=== PATIENT | female | born 1970 | race Caucasian/White ===

== ENCOUNTER → 2018-06-16 13:33 | Outpatient (CLI) | payer MEDICAID, SELFPAY ==
--- NOTE | 2018-06-16 14:54 | DI.REPORT_ITS ---
SYMPTOM/DIAGNOSIS: NECK PAIN M54.2, DIZZINESS R 42 CAROTID ULTRASOUND: There is minimal calcific plaque in the right common carotid bulb. The velocity measurements are within the normal range. The vertebral arteries show antegrade flow. IMPRESSION: No significant internal carotid artery stenosis.
== END ==
PROVIDERS: PCP Physician Assistant Medical; Visit Provider Physician Assistant Medical
DX: M54.2 Cervicalgia (principal); R42 Dizziness and giddiness
CPT/HCPCS: 93880

== ENCOUNTER 2018-09-10 17:04 | Outpatient (REF) | payer MEDICAID, SELFPAY ==
[2018-09-10 21:11] LABS: ALT 42 U/L (12-78); AST 24 U/L (15-37); Albumin 3.5 g/dL (3.4-5.0); Alkaline Phosphatase 139 U/L (46-116); Anion Gap 9.1 mmol/L (3-11); BUN 13 mg/dL (7-18); Bilirubin, Total 0.3 mg/dL (0.2-1.0); CO2 30.9 mmol/L (21.0-32.0); CREATININE 0.73 mg/dL (0.55-1.02); Calcium 9.5 mg/dL (8.5-10.1); Chloride 101 mmol/L (98-107); Cholesterol 187 mg/dL (50-200); Glucose 115 mg/dL (70-100); HDL Cholesterol 37 mg/dL (40-60); LDL CHOLESTEROL 112 mg/dL (<100); Potassium 4.1 mmol/L (3.5-5.1); Sodium 141 mmol/L (136-145); Total Protein 7.4 g/dL (6.4-8.2); Triglyceride 304 mg/dL (30-150)
== END 2018-09-10 17:24 ==
LOC: NCHCN 17:04
PROVIDERS: PCP Physician Assistant Medical; Visit Provider Physician Assistant Medical
DX: E78.5 Hyperlipidemia, unspecified (principal); E03.9 Hypothyroidism, unspecified
CPT/HCPCS: 80053; 80061; 83721; 83036; 84443

== ENCOUNTER 2018-10-16 01:17 | Outpatient (CLI) | payer MEDICAID, SELFPAY ==
--- NOTE | 2018-10-16 11:56 | DI.MRI_ITS ---
SYMPTOM/DIAGNOSIS: RT NECK PAIN, M54.2 C-SPINE MRI: The history is right neck pain. The study was carried out according to the usual protocol. The noncontrast enhanced examination includes T2 sagittal,l T1 sagittal, T1 sagittal FLAIR and T2 axial and T1 sagittal STIR and T2 sagittal 3-D pulses sequences. The cervical vertebra are intact. There is normal cervical lordosis. The disc spaces are well maintained. The dens is intact. There is no evidence of a marrow signal abnormality. No intrinsic or extrinsic abnormality involving the cervical cord is identified and there is no evidence of expansion or abnormal cord signal. Note is also incidentally made of no abnormality in the posterior fossa as demonstrated. At C4-C5, no abnormality is demonstrated. There is no evidence of spinal stenosis. At C5-6, a broad based disc protrusion causes mild canal narrowing and mild bilateral foraminal narrowing. At C6-7, left paracentral disc protrusion. There is vertebral spurring which causes mild to moderate canal narrowing and moderate left foraminal stenosis. At C7-T1 there is no evidence of significant central canal or foraminal narrowing. SUMMARY: No acute findings are demonstrated involving the cervical spine. There is mild to moderate degenerative disc disease at C5-C6. Please see the above discussion.
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
== END 2018-10-16 01:37 ==
PROVIDERS: PCP Physician Assistant Medical; Visit Provider Physician Assistant Medical
DX: M54.2 Cervicalgia (principal); M50.222 Other cervical disc displacement at C5-C6 level
CPT/HCPCS: 72141

== ENCOUNTER 2019-02-10 00:29 | Outpatient (CLI) | payer MEDICAID, SELFPAY ==
[2019-02-10] MEDS: Barium Sulfate 60% W/V 355 ML BTL PO ×2 (10:35→10:36)
[2019-02-10] MEDS: Barium Sulfate 700 MG TAB PO (10:36)
--- NOTE | 2019-02-10 10:36 | DI.RAD_ITS ---
SYMPTOM/DIAGNOSIS: GLOBUS SENSATION F45.8 BARIUM SWALLOW: Fluoroscopy Time: 1 min 6 sec A preliminary PA and lateral examination of the chest and a soft tissue neck are within normal limits. The patient swallowed Barium without difficulty. No abnormality involving oral hypopharynx is seen. The esophagus appears normal throughout. There is no evidence of a hiatus hernia. SUMMARY: Normal Barium swallow.
== END 2019-02-10 00:49 ==
PROVIDERS: PCP Physician Assistant Medical; Visit Provider Physician Assistant Medical
DX: F45.8 Other somatoform disorders (principal)
CPT/HCPCS: 74220

== ENCOUNTER 2019-06-16 12:56 | Outpatient (REF) | payer MEDICAID, SELFPAY ==
[2019-06-18 09:55] LABS: HIV-1/2 Ag & Ab Screen Negative (NEGAT)
[2019-06-18 10:48] LABS: Hepatitis C Ab w Rflx HCV PCR Negative (NEGAT)
[2019-06-18 15:02] LABS: Syphilis Serology (RPR) Negative (Negative)
[2019-06-18 15:35] LABS: Chlamydia Result Negative; GC Result Negative; Specimen Description URINE
== END 2019-06-16 13:16 ==
LOC: NCHCN 12:56
PROVIDERS: PCP Physician Assistant Medical; Visit Provider Physician Assistant Medical
DX: Z11.3 Encounter for screening for infections with a predominantly sexual mode of transmission (principal); Z70.8 Other sex counseling; Z11.4 Encounter for screening for human immunodeficiency virus [HIV]; Z11.59 Encounter for screening for other viral diseases
CPT/HCPCS: 86803; 87389; 87491; 87591; 86592

== ENCOUNTER 2019-08-05 12:52 | Outpatient (CLI) | payer MEDICAID, SELFPAY ==
--- NOTE | 2019-08-05 13:29 | DI.RAD_ITS ---
EXAM: XR CHEST 2V PA AND LATERAL INDICATION: COUGH, R05. COMPARISON: RF barium swallow from 02/10/2019 TECHNIQUE: 2D digital imaging was performed. FINDINGS: The lungs are well expanded and free of infiltrate. There is no pleural effusion. The heart is not en larged. Hilar structures, mediastinum and tracheal air column are intact. IMPRESSION: No evidence of acute cardiopulmonary disease.
[2019-08-05 14:33] LABS: Abs Immature Grans 0.02 k/cumm (0.0-0.09); Absolute Basophil Count 0.03 k/cumm (0.0-0.2); Absolute Eosinophil Count 0.15 k/cumm (0.0-0.7); Absolute Lymphocyte Count 1.48 k/cumm (1.2-3.4); Absolute Monocyte Count 0.93 k/cumm (0.11-0.7); Absolute Neutrophil Count 5.46 k/cumm (1.2-6.7); Basophils % 0.4; Eosinophils % 1.9; HCT 44.3 % (36.0-46.0); HGB 14.2 g/dL (12.0-15.5); Immature Grans % 0.2; Lymphocytes % 18.3; Mean Corp. HGB Concentration 32.1 g/dL (32.0-36.0); Mean Corpuscular Hemoglobin 28.7 pg (27.0-33.0); Mean Corpuscular Volume 89.7 fL (80-95); Mean Platelet Volume 10.6 fL (8.0-11.0); Monocytes % 11.5; Neutrophils % 67.7; Platelet Count 390 x1000/uL (130-400); RBC 4.94 m/cumm (4.00-5.20); RBC Distribution Width 13.7 % (11.7-14.6); White Blood Cell Count 8.07 k/cumm (4.4-10.8)
[2019-08-05 14:35] LABS: Anion Gap 9.8 mmol/L (3-11); BUN 9 mg/dL (7-18); CO2 27.2 mmol/L (21.0-32.0); CREATININE 0.74 mg/dL (0.55-1.02); Calcium 9.3 mg/dL (8.5-10.1); Chloride 106 mmol/L (98-107); Glucose 116 mg/dL (70-100); Potassium 4.4 mmol/L (3.5-5.1); Sodium 143 mmol/L (136-145)
== END 2019-08-05 13:12 ==
PROVIDERS: PCP Physician Assistant Medical; Visit Provider Physician Assistant Medical
DX: R05 Cough (principal)
CPT/HCPCS: 80048; 71046; 85025

== ENCOUNTER 2021-10-13 20:42 | Outpatient (REF) | payer BC, MEDICAID, SELFPAY ==
[2021-10-13 20:27] LABS: BUN 15 mg/dL (7-18); CREATININE 0.6 mg/dL (0.55-1.02); Calcium 9.5 mg/dL (8.5-10.1); Cholesterol 225 mg/dL (<200); Glucose 83 mg/dL (74-106); Triglyceride 212 mg/dL (<150)
[2021-10-13 20:28] LABS: ALT 60 U/L (14-59); AST 26 U/L (15-37); Albumin 3.9 g/dL (3.4-5.0); Alkaline Phosphatase 152 U/L (46-116); Anion Gap 5.3 mmol/L (3-11); Bilirubin, Total 0.5 mg/dL (0.2-1.0); CO2 33.7 mmol/L (21.0-32.0); Calculated LDL 136 mg/dL (<100); Chloride 102 mmol/L (98-107); HDL Cholesterol 47 mg/dL (40-60); Potassium 4.8 mmol/L (3.5-5.1); Sodium 141 mmol/L (136-145); TSH 3.91 uIU/mL (0.36-3.74); Total Protein 7.8 g/dL (6.4-8.2)
[2021-10-13 20:30] LABS: Hemoglobin A1C 5.9 % (<5.7)
[2021-10-16 08:49] LABS: HCT 44.5 % (36.0-46.0); HGB 13.9 g/dL (11.2-15.7); MCH 28.1 pg (27.0-33.0); MCHC 31.2 % (32.0-36.0); MCV 90.1 fL (80-95); Platelet Count 358 10^3/uL (130-400); RBC 4.94 10^6/uL (3.93-5.22); RDW 13.5 % (11.7-14.6); RDW-SD 43.9 fL; WBC 7.46 10^3/uL (4.4-10.8)
== END 2021-10-13 20:43 | disposition home or self-care (01) ==
LOC: LBN 20:42
PROVIDERS: PCP Physician Assistant Medical; Visit Provider Physician Assistant Medical
DX: R79.89 Other specified abnormal findings of blood chemistry (principal); I10 Essential (primary) hypertension; E03.9 Hypothyroidism, unspecified; E78.5 Hyperlipidemia, unspecified
CPT/HCPCS: 80053; 80061; 85027; 83036; 84443

== ENCOUNTER 2022-07-10 19:23 | Outpatient (REF) | payer MEDICAID, SELFPAY ==
[2022-07-10 20:12] LABS: HCT 43.2 % (36.0-46.0); HGB 14.3 g/dL (11.2-15.7); MCHC 33.1 % (32.0-36.0); MCV 88 fL (80-95); MPV 11.3 fL (8.0-11.0); Platelet Count 361 10^3/uL (130-400); RBC 4.93 10^6/uL (3.93-5.22); RDW-SD 41.9 fL; WBC 8.18 10^3/uL (4.4-10.8)
[2022-07-10 20:28] LABS: ALT 69 U/L (14-59); Albumin 3.4 g/dL (3.4-5.0); Alkaline Phosphatase 123 U/L (46-116); Anion Gap 8.4 mmol/L (3-11); BUN 16 mg/dL (7-18); Bilirubin, Total 0.3 mg/dL (0.2-1.0); CO2 30.6 mmol/L (21.0-32.0); CREATININE 0.7 mg/dL (0.55-1.02); Calcium 9.2 mg/dL (8.5-10.1); Chloride 101 mmol/L (98-107); Cholesterol 291 mg/dL (<200); Glucose 89 mg/dL (74-106); HDL Cholesterol 43 mg/dL (40-60); Sodium 140 mmol/L (136-145); TSH 0.83 uIU/mL (0.36-3.74); Total Protein 7.7 g/dL (6.4-8.2); Triglyceride 614 mg/dL (<150)
[2022-07-10 20:33] LABS: Hemoglobin A1C 6.1 % (<5.7)
[2022-07-10 20:47] LABS: AST 56 U/L (15-37)
[2022-07-10 21:03] LABS: LDL CHOLESTEROL 177 mg/dL (<100)
== END 2022-07-10 19:24 | disposition home or self-care (01) ==
LOC: NCHCN 19:23
PROVIDERS: PCP Physician Assistant Medical; Visit Provider Physician Assistant Medical
DX: E03.9 Hypothyroidism, unspecified (principal); R79.89 Other specified abnormal findings of blood chemistry; E78.5 Hyperlipidemia, unspecified; R73.03 Prediabetes
CPT/HCPCS: 80053; 80061; 83721; 85027; 83036; 84443

== ENCOUNTER 2023-03-29 13:02 | Outpatient (REF) | payer BC, MEDICAID, SELFPAY ==
[2023-03-29 15:04] LABS: ALT 63 U/L (14-59); AST 51 U/L (15-37); Albumin 3.8 g/dL (3.4-5.0); Alkaline Phosphatase 158 U/L (46-116); Anion Gap 6.3 mmol/L (3-11); BUN 12 mg/dL (7-18); Bilirubin, Total 0.5 mg/dL (0.2-1.0); CO2 32.7 mmol/L (21.0-32.0); CREATININE 0.7 mg/dL (0.55-1.02); Calcium 9.6 mg/dL (8.5-10.1); Calculated LDL 119 mg/dL (<100); Chloride 100 mmol/L (98-107); Cholesterol 199 mg/dL (<200); Estimated GFR 103.35 (mL/min/1.73m2); Glucose 107 mg/dL (74-106); HDL Cholesterol 49 mg/dL (40-60); Potassium 4.4 mmol/L (3.5-5.1); Sodium 139 mmol/L (136-145); Total Protein 8.4 g/dL (6.4-8.2); Triglyceride 158 mg/dL (<150)
== END 2023-03-29 13:03 | disposition home or self-care (01) ==
LOC: NCHCN 13:02
PROVIDERS: PCP Physician Assistant Medical; Visit Provider Physician Assistant Medical
DX: K76.0 Fatty (change of) liver, not elsewhere classified (principal); I10 Essential (primary) hypertension; R73.03 Prediabetes
CPT/HCPCS: 80053; 80061; 83036

== ENCOUNTER 2024-07-22 16:26 | Outpatient (REF) | payer BC, SELFPAY ==
[2024-07-22 19:41] LABS: Abs Immature Grans 0.02 10^3/uL (0.0-0.06); Absolute Basophil Count 0.06 10^3/uL (0.0-0.2); Absolute Eosinophil Count 0.18 10^3/uL (0.0-0.7); Absolute Lymphocyte Count 2.53 10^3/uL (1.2-3.4); Absolute Monocyte Count 0.71 10^3/uL (0.1-0.8); Basophils % 0.7 %; Eosinophils % 2.2 %; HCT 45.8 % (36.0-46.0); HGB 14.6 g/dL (11.2-15.7); Immature Grans % 0.2 %; Lymphocytes % 30.5 %; MCH 27.5 pg (27.0-33.0); MCHC 31.9 % (32.0-36.0); MCV 86 fL (80-95); MPV 10.3 fL (8.0-11.0); Monocytes % 8.6 %; Neutrophils % 57.8 %; Platelet Count 396 10^3/uL (130-400); RBC 5.31 10^6/uL (3.93-5.22); RDW 13.2 % (11.7-14.6); RDW-SD 41.1 fL
[2024-07-22 19:53] LABS: Hemoglobin A1C 6.5 % (<5.7)
[2024-07-22 19:59] LABS: ALT 62 U/L (14-59); AST 57 U/L (15-37); Albumin 3.7 g/dL (3.4-5.0); Alkaline Phosphatase 187 U/L (46-116); Anion Gap 5.9 mmol/L (3-11); BUN 10 mg/dL (7-18); Bilirubin, Total 0.66 mg/dL (0.2-1.0); CO2 32.1 mmol/L (21.0-32.0); CREATININE 0.7 mg/dL (0.55-1.02); Calcium 9.6 mg/dL (8.5-10.1); Calculated LDL 113 mg/dL (<100); Chloride 100 mmol/L (98-107); Cholesterol 184 mg/dL (<200); Estimated GFR 102.71 (mL/min/1.73m2); Glucose 92 mg/dL (74-106); HDL Cholesterol 45 mg/dL (40-60); Potassium 4.1 mmol/L (3.5-5.1); Sodium 138 mmol/L (136-145); TSH (W/Ref FT4) 2.29 uIU/mL (0.36-3.74); Total Protein 7.6 g/dL (6.4-8.2); Triglyceride 132 mg/dL (<150)
== END 2024-07-22 16:27 | disposition home or self-care (01) ==
LOC: NCHCN 16:26
PROVIDERS: PCP Physician Assistant Medical; Visit Provider Physician Assistant Medical
DX: K76.0 Fatty (change of) liver, not elsewhere classified; E03.9 Hypothyroidism, unspecified
CPT/HCPCS: 80053; 80061; 83036; 84443; 85025

== ENCOUNTER 2025-08-10 13:17 | Outpatient (REF) | payer BC, SELFPAY ==
[2025-08-10 17:41] LABS: Hemoglobin A1C 6.5 % (<5.7)
[2025-08-10 17:54] LABS: Calculated LDL 120 mg/dL (<100); Cholesterol 201 mg/dL (<200); HDL Cholesterol 48 mg/dL (>or=50); TSH (W/Ref FT4) 5.32 uIU/mL (0.36-3.74); Triglyceride 169 mg/dL (<150)
== END 2025-08-10 13:18 | disposition home or self-care (01) ==
LOC: NCHCN 13:17
PROVIDERS: PCP Physician Assistant Medical; Visit Provider Physician Assistant Medical
DX: R73.03 Prediabetes (principal); E78.5 Hyperlipidemia, unspecified; E03.9 Hypothyroidism, unspecified
CPT/HCPCS: 80061; 83036; 84439; 84443